=== PATIENT | female | born 1995 | race Two or more races ===

== ENCOUNTER 2021-02-22 | Emergency (ER) | payer SELFPAY ==
[~2021-02-22] VITALS: Ht 162.6 cm; Wt 69.0 kg
[2021-02-22] MEDS ORDERED: ACETAMINOPHEN 325MG TABLET PO ONE (00:30)
[2021-02-22 03:19] VITALS: BP 117/58
== END 2021-02-22 03:20 | disposition home or self-care (01) ==
LOC: ER
DX: O26.892 Other specified pregnancy related conditions, second trimester (principal); O24.912 Unspecified diabetes mellitus in pregnancy, second trimester; S80.11XA Contusion of right lower leg, initial encounter; W01.0XXA Fall on same level from slipping, tripping and stumbling without subsequent striking against object, initial encounter; Y93.89 Activity, other specified; Y92.89 Other specified places as the place of occurrence of the external cause; Y99.8 Other external cause status; Z3A.17 17 weeks gestation of pregnancy
CPT/HCPCS: 73590; 76805; 99284